=== PATIENT | female | born 1985 | race Caucasian/White ===

== ENCOUNTER 2020-12-29 18:51 | Emergency (ER) | payer OTHER ==
[2020-12-30 04:25] LABS: BASOPHIL 0.4 % (0-2); EOSINOPHIL 3.8 % (0-5); HCT 36.7 % (37.0-47.0); HGB 12.1 g/dl (12.5-16.0); LYMPHOCYTE 45.8 % (15-48); MCH 29.2 pg (25.0-31.0); MCV 88.4 fL (78.0-100.0); MONOCYTE 8.3 % (0-12); MPV 9.7 fL (6.0-9.5); NEUTROPHIL 41.4 % (41-80); NRBC 0; PLT 304 K/uL (150-400); RBC 4.15 M/uL (4.20-5.40); RDW 12.4 % (11.5-14.0); WBC 6.8 K/uL (4.0-10.5)
[2020-12-30 04:52] LABS: ALBUMIN 4.3 g/dL (3.4-5.0); BILIRUBIN - TOTAL 0.2 mg/dL (0.2-1.0); BUN/CREAT RATIO (CALC) 9.5 RATIO; CREATININE 0.63 mg/dL (0.51-0.95); GLOBULIN (CALCULATION) 3.1 g/dL; POTASSIUM 3.6 mmol/L (3.5-5.1); TOTAL PROTEIN 7.4 g/dL (6.4-8.2)
[2020-12-30] MEDS ORDERED: CLEOCIN300 MG PO (05:11)
[2020-12-30] MEDS ORDERED: VENTOLIN HFA18 GM INH (05:11)
[2020-12-30] MEDS ORDERED: DIFLUCAN150 MG PO (05:11)
== END 2020-12-30 05:40 | disposition home or self-care (01) ==
LOC: FER 18:51
PROVIDERS: Emergency Medicine
DX: H66.93 Otitis media, unspecified, bilateral (principal); R07.89 Other chest pain; Z87.09 Personal history of other diseases of the respiratory system; Z88.0 Allergy status to penicillin; Z88.5 Allergy status to narcotic agent
CPT/HCPCS: 36415; 71045; 80053; 84484; 85025; 93005